=== PATIENT | female | born 1985 | race Caucasian/White ===

== ENCOUNTER 2017-12-20 11:33 | Outpatient (CLI) | payer OTHER ==
--- NOTE | 2017-12-20 12:11 | XRay Report ---
THORACIC SPINE, 2 VIEWS: HISTORY: back pain. Normal bone mineralization. No evidence for compression deformity, malalignment, or bone lesion. Minimal anterior spurring is present throughout the mid and lower thoracic spine. The posterior ribs are intact. The paraspinal soft tissues are within normal limits. IMPRESSION: Minimal thoracic spondylosis. No acute process.
--- NOTE | 2017-12-20 12:12 | XRay Report ---
LUMBOSACRAL SPINE, FIVE VIEWS: HISTORY: Low back pain. Views of the lumbosacral spine demonstrate normal bony alignment, vertebral height and interspace distances. Oblique views show patent foramina and normal apophyseal joint alignment. IMPRESSION: Lumbar spine within normal limits.
== END 2017-12-20 11:34 | disposition home or self-care (01) ==
LOC: XRAY 11:33
PROVIDERS: ATTEND Family Medicine
DX: M47.894 Other spondylosis, thoracic region (principal)
CPT/HCPCS: 72072; 72110